=== PATIENT | female | born 1975 | race Caucasian/White ===

== ENCOUNTER 2017-10-22 05:52 | Observation (INO) | payer OTHER ==
[2017-10-22] MEDS ORDERED: Lidocaine 1% w/Epinephrine 1:100K 30 ML VIAL ONE (06:33)
[2017-10-22] MEDS ORDERED: Chlorhexidine Gluconate 15 ML UDCUP SSP ONE (06:33)
[2017-10-22] MEDS ORDERED: Hydrocortisone 1% Cream 30 GM TUBE ONE (06:35)
[2017-10-22] MEDS ORDERED: Clindamycin/D5W 900 mg/50 ml Premix Bag ONE (06:49)
[2017-10-22] MEDS ORDERED: Fentanyl 100 MCG/2 ML VIAL ONE (06:50)
[2017-10-22] MEDS ORDERED: Oxymetazoline HCl 0.05% ( 15 ML ) ONE (06:52)
[2017-10-22] MEDS ORDERED: Midazolam HCl 2 mg/2 ml Vial ONE (06:59)
[2017-10-22] MEDS ORDERED: Clindamycin/D5W 600 mg/50 ml Premix Bag ONE (07:26)
[2017-10-22] MEDS ORDERED: Hydrocodone-Acetamin 15 ML UDCUP PO PRN (10:04)
[2017-10-22] MEDS ORDERED: D5 0.9% NS w/ 20 mEq KCl 1,000 ML IV SCH (10:15)
--- NOTE | 2017-10-22 10:47 | OP ---
PREOPERATIVE DIAGNOSES: Dental caries, decreased p.o., facial pain and swelling and mental retardati on. POSTOPERATIVE DIAGNOSES: 1. Dental caries. 2. Periodontal disease. 3. Dental swelling and dental abscess. 4. Mental retardation. BRIEF PATIENT HISTORY AND PROCEDURE IN DETAIL: This is a 42-year-old female with history of Down's s yndrome was severely dental phobic, will not let you do adequate oral exam, so patient was taken to [facility] operating room for exam, but grossly what we could see visually was that most of her teeth were de cayed severely. She also had been having decreased p.o. because of pain per the mom as well as inter mittent swelling of her cheeks and gums. DESCRIPTION OF PROCEDURE: The patient was taken back to the operating room, intubated nasally by Daiana vizcarra. Oropharynx was suctioned, throat pack was placed. On exam of the oral cavity, there was gr oss coronal decay of all remaining teeth. All remaining teeth had generalized plaque and calculus de posits, severely inflamed and erythematous gingiva around all the teeth. Also note most of the teeth were in minimum class II mobile. There was no extraoral swelling at this time. After placement of a throat pack using a Ray-Elvira sponge, oral cavity was irrigated with normal saline and Peridex. Loca l anesthetic infiltration in the maxilla and palate as well as bilateral inferior alveolar nerve bloc ks were given as well as infiltration in the mandible. Approximately 17 mL of 1% lidocaine 1:100,000 epinephrine was given. Full thickness mucoperiosteal flap was laid from the right maxillary tuberos ity to the left. Forcep removal of all remaining teeth. There was an impacted canine in the maxilla ry left that was removed as well. That was found upon removal of the erupted canines. Procedure was then taken of the mandible after normal saline irrigation and alveoloplasty of the upper right and u pper left quadrant, curetted the sockets. Alveoloplasty was performed with a bone davin. Closure of the maxilla with a running 4-0 chromic gut was obtained. The procedure was then taken of the mandibl e were full thickness mucoperiosteal flap was raised from the distal of the second molar on the lower right and distal of the second molar on the lower left. Teeth were removed with elevator and forcep s. Full thickness mucoperiosteal flap was laid on the buccal and curetted the sockets, alveoplasty w ith bone davin, normal saline irrigation, closure with a running 4-0 chromic gut stitch. The patient tolerated the procedure well and she was hemostatic at termination of the procedure. Throat pack was removed. The patient will be placed on a 24-hour observation. Take home medications will be ibupro fen 600 mg p.o. q.6 hours p.r.n. pain as well as Tylenol #3 liquid 10 mL p.o. q.6 hours p.r.n. pain.
[2017-10-22 11:21] VITALS: BP 126/69; TEMP 97.5
[2017-10-22 11:25] VITALS: BMI 19.5
[2017-10-22] MEDS ORDERED: Ibuprofen 100 MG/5 ML UDCUP PO SCH (12:00)
[2017-10-22] MEDS ORDERED: Ketorolac Tromethamine 30 MG/ML VIAL ONE (14:58)
[2017-10-22] MEDS ORDERED: Lidocaine 1% PF 5 ML VIAL ONE (14:58)
[2017-10-22] MEDS ORDERED: PROPOFOL 200 MG/20 ML VIAL ONE (14:58)
[2017-10-22] MEDS ORDERED: Ondansetron PF 4 MG/2 ML Vial ONE (14:58)
[2017-10-22] MEDS ORDERED: Glycopyrrolate 0.2 MG/ML 5 ML SYRINGE ONE (14:58)
[2017-10-22] MEDS ORDERED: Dexamethasone 20 MG/5 ML VIAL ONE (14:58)
[2017-10-22] MEDS ORDERED: PHENYLEPHRINE-NS 100 MCG/ML 10 ML SYRINGE ONE (14:58)
== END 2017-10-22 17:53 | disposition home or self-care (01) ==
LOC: SDC 05:52 → SJJU 10:00
PROVIDERS: ADMIT Dentist Oral and Maxillofacial Surgery; ATTEND Dentist Oral and Maxillofacial Surgery
PROC: 0NQR0ZZ Repair Maxilla, Open Approach (ICD-10-PCS; principal; 2017-10-22)
PROC: 0CDXXZ2 Extraction of Lower Tooth, All, External Approach (ICD-10-PCS; 2017-10-22)
PROC: 0CDWXZ2 Extraction of Upper Tooth, All, External Approach (ICD-10-PCS; 2017-10-22)
DX: K02.9 Dental caries, unspecified (principal); K05.6 Periodontal disease, unspecified; K04.7 Periapical abscess without sinus; Q90.9 Down syndrome, unspecified; F79 Unspecified intellectual disabilities; Z79.899 Other long term (current) drug therapy; Z98.890 Other specified postprocedural states
CPT/HCPCS: G0378; J0131; J1100; J1885; J2001; J2250; J2405; J2704; J3010; J3490